=== PATIENT | female | born 1930 | race Caucasian/White ===

== ENCOUNTER 2017-12-20 09:05 | Inpatient (IN) | payer MEDICAID ==
[2017-12-20 13:28] LABS: ADD MAN DIFF? NO
[2017-12-20 13:30] LABS: BASOPHIL # 0.1 10^3/ul (0.0-0.1); BASOPHILS % 0.5 % (0.0-2.0); EOSINOPHILS # 0.1 10^3/ul (0.0-0.5); EOSINOPHILS % 1.2 % (0.0-7.0); HEMATOCRIT 32.1 % (37.0-47.0); HEMOGLOBIN 10.5 g/dl (12.0-16.0); LYMPHOCYTES # 1.5 10^3/ul (0.8-2.9); LYMPHOCYTES % 15.8 % (15.0-51.0); MEAN CORPUSCULAR HGB CONC 32.7 g/dl (32.0-37.0); MEAN CORPUSCULAR VOLUME 97.9 fl (82.0-101.0); MEAN PLATELET VOLUME 8.8 fl (7.4-10.4); MONOCYTE # 0.7 10^3/ul (0.3-0.9); MONOCYTES % 6.8 % (0.0-11.0); NEUTROPHIL # 7.2 10^3/ul (1.6-7.5); NEUTROPHILS % 75.3 % (39.0-77.0); PLATELET COUNT 402 10^3/UL (140-415); RED BLOOD COUNT 3.28 10^6/ul (4.20-5.40); RED CELL DISTRIBUTION WIDTH 13.3 % (11.5-14.5)
[2017-12-20 13:30] LABS: WHITE BLOOD COUNT 9.5 10^3/ul (4.8-10.8)
[2017-12-20] MEDS: SOD CHLORIDE 0.9% 1,000 ML IV (13:37)
[2017-12-20] MEDS: ASPIRIN 325 MG TAB PO (13:37)
[2017-12-20 13:44] LABS: ALANINE AMINOTRANSFERASE 20 IU/L (13-69); ALBUMIN 2.6 g/dl (3.3-4.9); ALBUMIN/GLOBULIN RATIO 0.78; ALKALINE PHOSPHATASE 139 IU/L (42-121); AMYLASE 95 U/L (11-123); ANION GAP 10 (8-16); ASPARTATE AMINO TRANSFERASE 31 IU/L (15-46); BILIRUBIN,INDIRECT 0.2 mg/dl (0-1.1); BILIRUBIN,TOTAL 0.2 mg/dl (0.2-1.3); BLOOD UREA NITROGEN 15 mg/dl (7-20); CALCIUM 8.5 mg/dl (8.4-10.2); CARBON DIOXIDE 27 mmol/L (21-31); CHLORIDE 104 mmol/L (97-110); CREATININE 0.61 mg/dl (0.44-1.00); GLUCOSE 91 mg/dl (70-220); LIPASE 42 U/L (23-300); POTASSIUM 4.2 mmol/L (3.5-5.1); SODIUM 137 mmol/L (135-144); TOTAL PROTEIN 5.9 g/dl (6.1-8.1)
[2017-12-20 13:50] LABS: INR 0.93; PROTIME 12.5 Sec (11.9-14.9)
[2017-12-20 13:51] LABS: PARTIAL THROMBOPLASTIN TIME 35.8 Sec (25.0-35.0)
[2017-12-20 13:53] LABS: B-TYPE NATRIURETIC PEPTIDE 534 PG/ML (0-450)
[2017-12-20 13:55] LABS: TROPONIN-I < 0.010 ng/ml (0.000-0.120)
[2017-12-20 14:33] LABS: LACTIC ACID 1.5 mmol/L (0.5-2.0)
[2017-12-20] MEDS: SOD CHLORIDE 0.9% 100 ML (15:15)
[2017-12-20] MEDS: IOHEXOL 300MG/ML 150 ML BTL (15:15)
[2017-12-20] MEDS ORDERED: ACETAMINOPHEN 325 MG TAB PO (17:30)
[2017-12-20] MEDS ORDERED: ONDANSETRON 4 MG INJ IV (17:30)
[2017-12-20 17:46] LABS: ADD UMIC YES; UR ASCORBIC ACID 20 mg/dL (NEGATIVE); UR BILIRUBIN (Dip) NEGATIVE (NEGATIVE); UR BLOOD (Dip) NEGATIVE (NEGATIVE); UR CLARITY CLEAR (CLEAR); UR COLOR YELLOW (YELLOW); UR GLUCOSE (Dip) NEGATIVE (NEGATIVE); UR KETONES (Dip) NEGATIVE (NEGATIVE); UR LEUKOCYTE ESTERASE (Dip) 1+ Leu/ul (NEGATIVE); UR NITRITE (Dip) NEGATIVE (NEGATIVE); UR RBC 0 /HPF (0-5); UR SPECIFIC GRAVITY (Dip) 1.009 (1.003-1.030); UR TOTAL PROTEIN (Dip) NEGATIVE (NEGATIVE); UR UROBILINOGEN (Dip) 1+ mg/dL (NEGATIVE); UR WBC 5 /HPF (0-5)
[2017-12-20] MEDS: DEXTROSE 5%-0.45% NACL 1,000 ML IV (22:34)
[2017-12-21] MEDS: PANTOPRAZOLE 40 MG INJ IV (05:59)
[2017-12-21 07:51] LABS: ADD MAN DIFF? NO
[2017-12-21 07:57] LABS: BASOPHIL # 0.1 10^3/ul (0.0-0.1); BASOPHILS % 0.8 % (0.0-2.0); EOSINOPHILS # 0.1 10^3/ul (0.0-0.5); EOSINOPHILS % 1.6 % (0.0-7.0); HEMATOCRIT 30.2 % (37.0-47.0); HEMOGLOBIN 9.7 g/dl (12.0-16.0); LYMPHOCYTES # 1.2 10^3/ul (0.8-2.9); LYMPHOCYTES % 15.2 % (15.0-51.0); MEAN CORPUSCULAR HEMOGLOBIN 31.6 pg (29.0-33.0); MEAN CORPUSCULAR HGB CONC 32.1 g/dl (32.0-37.0); MEAN CORPUSCULAR VOLUME 98.4 fl (82.0-101.0); MEAN PLATELET VOLUME 8.9 fl (7.4-10.4); MONOCYTE # 0.6 10^3/ul (0.3-0.9); MONOCYTES % 7.2 % (0.0-11.0); NEUTROPHIL # 5.7 10^3/ul (1.6-7.5); NEUTROPHILS % 74.9 % (39.0-77.0); PLATELET COUNT 382 10^3/UL (140-415); RED BLOOD COUNT 3.07 10^6/ul (4.20-5.40); RED CELL DISTRIBUTION WIDTH 13.3 % (11.5-14.5)
[2017-12-21 07:57] LABS: WHITE BLOOD COUNT 7.6 10^3/ul (4.8-10.8)
[2017-12-21 08:22] LABS: ANION GAP 10 (8-16); BLOOD UREA NITROGEN 11 mg/dl (7-20); CALCIUM 7.6 mg/dl (8.4-10.2); CARBON DIOXIDE 25 mmol/L (21-31); CHLORIDE 108 mmol/L (97-110); CREATININE 0.52 mg/dl (0.44-1.00); GLUCOSE 82 mg/dl (70-220); POTASSIUM 3.7 mmol/L (3.5-5.1); SODIUM 139 mmol/L (135-144)
[2017-12-21] MEDS: ACETAMINOPHEN 325 MG TAB PO ×2 (11:58→23:51)
[2017-12-21] MEDS: DEXTROSE 5%-0.45% NACL 1,000 ML IV (16:43)
[2017-12-21] MEDS: LUBIPROSTONE 24 MCG CAP PO (20:50)
[2017-12-22] MEDS: DEXTROSE 5%-0.45% NACL 1,000 ML IV ×2 (05:15→14:51)
[2017-12-22] MEDS: PANTOPRAZOLE 40 MG INJ IV (05:15)
[2017-12-22 06:30] LABS: ADD MAN DIFF? NO
[2017-12-22 06:42] LABS: WHITE BLOOD COUNT 7.1 10^3/ul (4.8-10.8)
[2017-12-22 06:42] LABS: BASOPHILS % 0.4 % (0.0-2.0); EOSINOPHILS # 0.1 10^3/ul (0.0-0.5); EOSINOPHILS % 0.9 % (0.0-7.0); HEMATOCRIT 27.8 % (37.0-47.0); LYMPHOCYTES # 0.8 10^3/ul (0.8-2.9); LYMPHOCYTES % 11.8 % (15.0-51.0); MEAN CORPUSCULAR HEMOGLOBIN 31.5 pg (29.0-33.0); MEAN CORPUSCULAR HGB CONC 32.4 g/dl (32.0-37.0); MEAN CORPUSCULAR VOLUME 97.2 fl (82.0-101.0); MONOCYTE # 0.5 10^3/ul (0.3-0.9); MONOCYTES % 6.5 % (0.0-11.0); NEUTROPHIL # 5.7 10^3/ul (1.6-7.5); NEUTROPHILS % 80.1 % (39.0-77.0); PLATELET COUNT 364 10^3/UL (140-415); RED BLOOD COUNT 2.86 10^6/ul (4.20-5.40); RED CELL DISTRIBUTION WIDTH 13.4 % (11.5-14.5)
[2017-12-22 06:57] LABS: INR 1.05; PROTIME 13.8 Sec (11.9-14.9); PT RATIO 1.1
[2017-12-22 07:08] LABS: ALANINE AMINOTRANSFERASE 19 IU/L (13-69); ALBUMIN 1.9 g/dl (3.3-4.9); ALBUMIN/GLOBULIN RATIO 0.73; ALKALINE PHOSPHATASE 91 IU/L (42-121); ANION GAP 7 (8-16); ASPARTATE AMINO TRANSFERASE 22 IU/L (15-46); BLOOD UREA NITROGEN 9 mg/dl (7-20); CALCIUM 7.4 mg/dl (8.4-10.2); CARBON DIOXIDE 25 mmol/L (21-31); CHLORIDE 111 mmol/L (97-110); CREATININE 0.54 mg/dl (0.44-1.00); GLUCOSE 93 mg/dl (70-220); POTASSIUM 3.6 mmol/L (3.5-5.1); SODIUM 139 mmol/L (135-144); TOTAL PROTEIN 4.5 g/dl (6.1-8.1)
[2017-12-22] MEDS: POLYETHYLENE GLYCOL 17 GM PACKET PO (09:29)
[2017-12-22] MEDS: LUBIPROSTONE 24 MCG CAP PO ×2 (09:30→21:35)
[2017-12-22] MEDS: ONDANSETRON 4 MG INJ IV (11:46)
[2017-12-22] MEDS: CEFTRIAXONE 500 MG in SOD CHLORIDE 0.9% 50 ML IVPB (11:46)
[2017-12-22] MEDS: ACETAMINOPHEN 325 MG TAB PO (11:47)
[2017-12-22] MEDS: LIDOCAINE 2% (SDV) 5 ML INJ (13:05)
[2017-12-22] MEDS: PROPOFOL 40 ML (13:05)
[2017-12-23 05:08] LABS: ADD MAN DIFF? NO
[2017-12-23 05:12] LABS: BASOPHILS % 0.6 % (0.0-2.0); EOSINOPHILS # 0.1 10^3/ul (0.0-0.5); EOSINOPHILS % 1.5 % (0.0-7.0); HEMOGLOBIN 8.7 g/dl (12.0-16.0); LYMPHOCYTES # 0.9 10^3/ul (0.8-2.9); LYMPHOCYTES % 13.7 % (15.0-51.0); MEAN CORPUSCULAR HGB CONC 32.2 g/dl (32.0-37.0); MEAN CORPUSCULAR VOLUME 96.1 fl (82.0-101.0); MEAN PLATELET VOLUME 8.9 fl (7.4-10.4); MONOCYTE # 0.3 10^3/ul (0.3-0.9); NEUTROPHIL # 5.2 10^3/ul (1.6-7.5); NEUTROPHILS % 78.7 % (39.0-77.0); PLATELET COUNT 345 10^3/UL (140-415); RED BLOOD COUNT 2.81 10^6/ul (4.20-5.40); RED CELL DISTRIBUTION WIDTH 13.2 % (11.5-14.5)
[2017-12-23 05:12] LABS: WHITE BLOOD COUNT 6.6 10^3/ul (4.8-10.8)
[2017-12-23 05:48] LABS: ANION GAP 3 (8-16); BLOOD UREA NITROGEN 5 mg/dl (7-20); CALCIUM 7.4 mg/dl (8.4-10.2); CARBON DIOXIDE 25 mmol/L (21-31); CHLORIDE 113 mmol/L (97-110); CREATININE 0.56 mg/dl (0.44-1.00); GLUCOSE 93 mg/dl (70-220); SODIUM 138 mmol/L (135-144)
[2017-12-23] MEDS: PANTOPRAZOLE 40 MG INJ IV (06:06)
[2017-12-23] MEDS: DEXTROSE 5%-0.45% NACL 1,000 ML IV (06:06)
[2017-12-23] MEDS: POLYETHYLENE GLYCOL 17 GM PACKET PO (09:00)
[2017-12-23] MEDS: LUBIPROSTONE 24 MCG CAP PO ×2 (10:22→21:05)
[2017-12-23 12:04] LABS: IRON 30 ug/dl (35-150)
[2017-12-23 12:15] LABS: % IRON SATURATION 17 % SAT (22-52); TOTAL IRON BINDING CAPACITY 178 ug/dl (241-421)
[2017-12-23] MEDS: CEFTRIAXONE 500 MG in SOD CHLORIDE 0.9% 50 ML IVPB (12:37)
[2017-12-23 12:40] LABS: FERRITIN 33.2 ng/ml (11.1-264.0)
[2017-12-23 14:10] LABS: CARCINOEMBRYONIC ANTIGEN 10.6 ng/ml (0.0-5.0)
[2017-12-23] MEDS: POTASSIUM CHLORIDE 50 ML IVPB ×2 (15:22→21:12)
[2017-12-23] MEDS: IODIXANOL LOCM 100 ML BTL (18:04)
[2017-12-23] MEDS: SOD CHLORIDE 0.9% 100 ML (18:04)
[2017-12-23] MEDS: ACETAMINOPHEN 325 MG TAB PO (18:50)
[2017-12-23] MEDS: POTASSIUM CHLORIDE 100 ML IVPB (22:27)
[2017-12-24 05:18] LABS: ADD MAN DIFF? NO
[2017-12-24 05:31] LABS: BASOPHIL # 0.1 10^3/ul (0.0-0.1); BASOPHILS % 0.8 % (0.0-2.0); EOSINOPHILS # 0.1 10^3/ul (0.0-0.5); EOSINOPHILS % 2.2 % (0.0-7.0); HEMATOCRIT 29.1 % (37.0-47.0); HEMOGLOBIN 9.4 g/dl (12.0-16.0); LYMPHOCYTES # 0.9 10^3/ul (0.8-2.9); LYMPHOCYTES % 14.5 % (15.0-51.0); MEAN CORPUSCULAR HEMOGLOBIN 31.4 pg (29.0-33.0); MEAN CORPUSCULAR HGB CONC 32.3 g/dl (32.0-37.0); MEAN CORPUSCULAR VOLUME 97.3 fl (82.0-101.0); MONOCYTE # 0.5 10^3/ul (0.3-0.9); MONOCYTES % 7.5 % (0.0-11.0); NEUTROPHIL # 4.7 10^3/ul (1.6-7.5); NEUTROPHILS % 74.5 % (39.0-77.0); PLATELET COUNT 362 10^3/UL (140-415); RED BLOOD COUNT 2.99 10^6/ul (4.20-5.40); RED CELL DISTRIBUTION WIDTH 13.3 % (11.5-14.5)
[2017-12-24 05:31] LABS: WHITE BLOOD COUNT 6.3 10^3/ul (4.8-10.8)
[2017-12-24] MEDS: PANTOPRAZOLE (EC) 40 MG TAB PO (06:13)
[2017-12-24 06:16] LABS: ANION GAP 5 (8-16); BLOOD UREA NITROGEN 7 mg/dl (7-20); CALCIUM 7.7 mg/dl (8.4-10.2); CARBON DIOXIDE 24 mmol/L (21-31); CHLORIDE 114 mmol/L (97-110); CREATININE 0.61 mg/dl (0.44-1.00); GLUCOSE 84 mg/dl (70-220); POTASSIUM 3.9 mmol/L (3.5-5.1); SODIUM 139 mmol/L (135-144)
[2017-12-24] MEDS: POLYETHYLENE GLYCOL 17 GM PACKET PO (08:48)
[2017-12-24] MEDS: LUBIPROSTONE 24 MCG CAP PO ×2 (08:48→21:59)
[2017-12-24] MEDS: CEFTRIAXONE 500 MG in SOD CHLORIDE 0.9% 50 ML IVPB (13:48)
[2017-12-25] MEDS: ACETAMINOPHEN 325 MG TAB PO ×2 (02:29→13:09)
[2017-12-25] MEDS: PANTOPRAZOLE (EC) 40 MG TAB PO (06:11)
[2017-12-25] MEDS: POLYETHYLENE GLYCOL 17 GM PACKET PO (08:38)
[2017-12-25] MEDS: LUBIPROSTONE 24 MCG CAP PO (08:38)
[2017-12-25] MEDS: CEFTRIAXONE 500 MG in SOD CHLORIDE 0.9% 50 ML IVPB (11:52)
== END 2017-12-25 16:55 | disposition home or self-care (01) | DRG 374 ==
LOC: E/R 09:05 → PP2 17:26
PROC: 0DB68ZX Excision of Stomach, Via Natural or Artificial Opening Endoscopic, Diagnostic (ICD-10-PCS; principal; 2017-12-22 12:25)
DX: C16.2 Malignant neoplasm of body of stomach (principal); E43 Unspecified severe protein-calorie malnutrition; Z68.1 Body mass index [BMI] 19.9 or less, adult; N39.0 Urinary tract infection, site not specified; D50.9 Iron deficiency anemia, unspecified; D63.0 Anemia in neoplastic disease; E83.51 Hypocalcemia; E88.09 Other disorders of plasma-protein metabolism, not elsewhere classified; K59.00 Constipation, unspecified; N28.1 Cyst of kidney, acquired; Z90.49 Acquired absence of other specified parts of digestive tract; Z90.710 Acquired absence of both cervix and uterus
CPT/HCPCS: 71045; 71260; 74177; 74181; 78306; 80048; 80053; 81001; 82150; 82378; 82728; 83540; 83605; 83690; 83880; 84484; 85025; 85610; 85730; 87086; 88305; 88312; 88341; 88342; 93005; 99285-25; A9503